=== PATIENT | male | born 1970 | race Caucasian/White ===

== ENCOUNTER 2023-07-21 22:00 | Emergency (ER) | payer MEDICARE, MEDICAID ==
[~2023-07-21] VITALS: Ht 165.1 cm; Wt 66.4 kg
[2023-07-21 22:03] VITALS: BP 141/87; PULSE 85; RESP 18; TEMP 98.6; O2SAT 98
== END 2023-07-21 23:30 | disposition left against medical advice (07) ==
LOC: ER 22:02
DX: L02.413 Cutaneous abscess of right upper limb (principal); Z53.21 Procedure and treatment not carried out due to patient leaving prior to being seen by health care provider
CPT/HCPCS: 99281

== ENCOUNTER 2024-09-05 21:15 | Emergency (ER) | payer MEDICARE, MEDICAID ==
[~2024-09-05] VITALS: Ht 165.1 cm; Wt 69.2 kg
[2024-09-05 21:20] VITALS: BP 115/76; PULSE 78; TEMP 98.1; O2SAT 96
[2024-09-05 21:51] VITALS: RESP 18
== END 2024-09-05 21:54 | disposition home or self-care (01) ==
LOC: ER 21:15
DX: Z00.00 Encounter for general adult medical examination without abnormal findings (principal); I10 Essential (primary) hypertension; E78.00 Pure hypercholesterolemia, unspecified; Z86.73 Personal history of transient ischemic attack (TIA), and cerebral infarction without residual deficits
CPT/HCPCS: 99281